=== PATIENT | female | born 1960 | race African-American/Black ===

== ENCOUNTER → 2016-12-26 | Outpatient (CLI) | payer OTHER ==
[2016-06-18 21:37] VITALS: BP 206/121
[~2016-12-26] MED LIST: ATOR40TA PO; GLIP5TAB10 PO; HYDR-2868 PO; INSU100I17 SQ; LISI10TA2 PO; LISI20TA PO; METO50TA2 PO; MORP30TA83 PO; NITR0.4T6 SL; OMEP40CA5 PO; SIMV40TA3 PO; SITA100T PO; TIZA4TAB PO
--- NOTE | 2016-12-26 11:38 | RAD ---
Indication left nipple pain. Grayscale imaging about the left nipple was performed. In addition to images submitted by the technologist a real-time examination was performed by me. Note is made of the mammogram 07/07/2016 and the interpretation of normal. No mass is seen about the left nipple. No abnormality is apparent. IMPRESSION: Normal targeted ultrasound left breast
== END | disposition home or self-care (01) ==
LOC: US 10:55
PROVIDERS: ATTEND Internal Medicine
DX: N64.4 Mastodynia (principal); N61.0 Mastitis without abscess
CPT/HCPCS: 76641

== ENCOUNTER → 2017-01-27 | Day surgery (SDC) | payer OTHER ==
[~2017-01-27] MED LIST changes: +CLON0.2T PO; +GLIP10TA13 PO; +HYDROmorphone 2 MG/ML VIAL IV PRN; +INSU300I SQ; +IV RINGERS,LACTATED 1000ML 1,000 ML IV SCH; +LIDOCAINE 1% 1 ML SYRINGE. ID PRN; +METO100T2 PO; +MORPHINE SULFATE 2 MG/ML DISP.SYRIN. IV PRN; +ONDANSETRON PF 4 MG/2 ML VIAL. IV PRN; +PROCHLORPERAZINE 10 MG/2 ML VIAL. IV PRN; +PROPOFOL 20 ML IV ONE; +PROPOFOL 40 ML IV ONE; +fentaNYL PF VIAL 100 MCG/2 ML VIAL IV PRN
--- NOTE | 2017-01-27 08:20 | PDOC1 ---
HISTORY & PHYSICAL H&P Antoine Manning [id number] 1960 12/24/2016 03:00 PM 08/24 [facility] OUR PATIENTS COME FIRST [address] [place], [place] [id number] Ph. [phone] Patient: Antoine Manning Date of : 1960 Date: 12/24/2016 3:00 PM Visit Type: Consult This 56 year old female presents for H/o colorectal polyp. History of Present Illness: 1. H/o colorectal polyp Prior screening: colonoscopy. Denies risk factors. Pertinent negatives include abdominal pain, change in bowel habits, change in stool caliber, constipation, decreased appetite, diarrhea, melena, nausea, rectal bleeding, vomiting, weight gain and weight loss. Additional information: No family history of colon cancer, No family history of Crohn's/colitis, No NSAID/ASA use and Had colonoscopy in [place] and several polyps removed more then 3 yrs ago. INTAKE COMMENTS: Intake Comments: Nurse Note: the pt is here today for a colonoscopy, the pt states her last one was about 3 years ago and she had multiple polyps. PROBLEM LIST: Problem Description Onset Date Chronic Notes Uncontrolled type 2 diabetes mellitus with diabetic peripheral angiopathy without gangrene, with long-term current use of insulin 12/31/2015 Accelerated essential hypertension 07/02/2015 Controlled diabetes mellitus 05/24/2015 Inguinal lymphadenopathy 11/22/2015 IDDM (insulin dependent diabetes mellitus) 06/03/2016 HTN (hypertension), benign 06/03/2016 Acute low back pain due to spinal disorder 06/03/2016 Type 2 diabetes mellitus with diabetic nephropathy, with long-term current use of insulin 06/03/2016 Type 2 diabetes mellitus with other diabetic kidney complication 04/09/2016 DM w/o complication type II, uncontrolled 09/19/2015 Stuttering 09/19/2015 PAST MEDICAL/SURGICAL HISTORY (Detailed) Disease/disorder Onset Date Management Date Comments back surgery partial hystorectomy umbilical hernia Hernia repair 1980 Hysterectomy 1994 Depression Diabetes Hyperlipidemia Hypertension Medications (Active): Started Medication Directions Instruction Stopped Accu-Chek Active Glucose Cont combo pack 11/27/2016 atorvastatin 40 mg tablet take 1 tablet by oral route every day 11/27/2016 clonidine HCl 0.2 mg tablet TAKE ONE TABLET BY MOUTH TWICE DAILY 01/17/2016 Contour Test Strips check blood sugars TID for diabetes ( E11.9 ) [facility] [id number] 11/27/2016 glipizide 10 mg tablet take 1 tablet by oral route 2 times every day before meals 06/03/2016 Humalog KwikPen 100 unit/mL subcutaneous INJECT 25 UNITS TID FOR DIABETES ( E11.9) 11/28/2016 lisinopril 20 mg tablet take 1 tablet by oral route every day 11/27/2016 metoprolol tartrate 100 mg tablet take 1 tablet by oral route 2 times every day 11/27/2016 morphine 15 mg immediate release tablet take 1 tablet by oral route every 2 hours as needed total 45 mg po bid 12/24/2016 MS Contin 30 mg tablet,extended release take 1 tablet by oral route every 12 hours nitroglycerin 0.[address] 1 tablet (0.4MG) by sublingual route at the 1st sign of attack; may repeat every 5 min until relief; if pain persists after 3 tablets in 15 min, prompt medical attention is recommended 11/27/2016 omeprazole 20 mg capsule,delayed release TAKE ONE CAPSULE BY MOUTH ONCE DAILY BEFORE A MEAL 06/12/2015 PneumRx Verio IQ Meter kit 1 11/27/2016 tizanidine 4 mg tablet TAKE ONE TABLET BY MOUTH THREE TIMES DAILY 06/03/2016 Tolilia SoloStar 300 unit/mL (1.5 mL) subcutaneous insulin pen 25 u at hs Allergies: Ingredient Reaction Medication Name Comment ASPIRIN OXYCODONE REVIEW OF SYSTEMS System Neg/Pos Details Constitutional Negative Chills, fever, malaise, weight gain and weight loss. ENMT Negative Sore throat. Eyes Negative Double vision. Respiratory Negative Dyspnea and wheezing. Cardio Negative Chest pain and irregular heartbeat/palpitations. GI Positive See HPI. GI Negative Abdominal pain, change in bowel habits, change in stool caliber, constipation, decreased appetite, diarrhea, melena, nausea, see HPI, rectal bleeding and vomiting. Negative Dysuria and hematuria. Endocrine Negative Cold intolerance and heat intolerance. Psych Negative Anxiety. Integumentary Negative Hives and rash. MS Negative Joint pain. Tucker/Lymph Negative Easy bleeding and easy bruising. Allergic/Immuno Negative Food allergies. VITAL SIGNS Unable to obtain Height and Weight. Time BP mm/Hg Pulse /min Resp /min Temp F Ht ft Ht in Ht cm Wt lb Wt kg BMI kg/ m2 BSA m2 O2 Sat% 2:54 PM 120/80 76 98.2 97 Time Measured by 2:54 PM Vandana Ramirez PHYSICAL EXAM: Exam Findings Details Constitutional Normal Well developed. Eyes Normal Conjunctiva - Right: Normal, Left: Normal. Sclera - Right: Normal, Left: Normal. Nasopharynx Normal Lips/teeth/gums - Normal. Neck Exam Normal Inspection - Normal. Thyroid gland - Normal. Respiratory Normal Inspection - Normal. Auscultation - Normal. Cardiovascular Normal Regular rate and rhythm. No murmurs, gallops, or rubs. Vascular Normal Pulses - Carotids: Normal, Femoral: Normal, Dorsalis pedis: Normal. Abdomen Normal Inspection - Normal. Anterior palpation - No guarding. No abdominal tenderness. No hepatic enlargement. No splenic enlargement. No hernia. No Ascites. Skin Normal Inspection - Normal. Extremity Normal No edema. Psychiatric Normal Oriented to time, place, person, and situation. Appropriate mood and effect. Assessment/Plan # Detail Type Description 1. Assessment History of colon polyps (Z86.010). Patient Plan schedule colonoscopy. Plan Orders Further diagnostic evaluations ordered today include(s) Colonoscopy to be performed today. She is to schedule a follow-up visit with Terry Goode MD upon completion of work-up Electronically signed by: Terry Goode MD 12/24/2016 04:42 PM Document generated by: Terry Goode 12/24/2016 04:42 PM Vin Ingram MD, [facility]; John Bustos MD Internal Medicine; Wilfred John MD, Internal Medicine; Yessenia Goode MD Internal Medicine; Terry Goode MD, Gastroenterology; Roman Fischer MD, Rheumatology, [address], Physical Medicine/Rehab Fab Alarcon APRN ------ 01/27/17 Patient seen and examined. No change in H&P. TERRY GOODE MD Jan 27, 2017 08:20
--- NOTE | 2017-01-27 09:14 | PDOC4 ---
GI OP Report - Dr. Bolanos Date/Time DATE: 01/27/17 TIME: 09:12 Attending Physician Joaquim Bolanos MD Referring Physician Indications Personal history of colonic polyps Pre-Op See the Anesthesia note for documentation of the administered medications Procedures Colonoscopy Findings - Diverticulosis in the sigmoid colon. - One 5 mm polyp in the ascending colon, removed with a cold snare. Resected and retrieved. - The examination was otherwise normal on direct and retroflexion views. Plan - Discharge patient to home. - Patient has a contact number available for emergencies. The signs and symptoms of potential delayed complications were discussed with the patient. Return to normal activities tomorrow. Written discharge instructions were provided to the patient. - Resume regular diet. - Continue present medications. - Await pathology results. - Repeat colonoscopy in 3 - 5 years for surveillance based on pathology results. - Return to my office in 2 weeks. JOAQUIM BOLANOS MD Jan 27, 2017 09:14
[2017-01-27 09:25] VITALS: BP 153/96
--- NOTE | 2017-01-29 13:31 | PATHOLOGY ---
PATHOLOGY REPORT * * * * * * * * FINAL DIAGNOSIS: Colon biopsy, ascending colon polyp: - Segment of vegetable material identified. COMMENT: There is no polyp identified. REPORT ELECTRONICALLY SIGNED BY: Jesu Tran M.D. DATE/TIME: 01/29/2017 13:30 * * * * * * * * GROSS PATHOLOGY: The specimen is received in formalin labeled "Antoine Manning, ascending colon polyp." Received is a 0.4 cm segment of light barrett vegetative material, consistent with a seed. No soft tissue is grossly identified. The specimen is filtered and submitted entirely in cassette A1. (KAH; 01/28/2017) INITIAL CPT CODE(S): A; 79643 Professional services performed by [facility] [place] [address] Technical services performed by [facility] at [address] [place] [address], [facility] [address], [place] [address]. SPECIMEN(S) RECEIVED: A.Ascending colon polyp CLINICAL HISTORY: History of polyps; polyp PATIENT: ANTOINE MANNING /AGE: 9 1960 (Age: 56) PATIENT #: [id number] ALT CASE #: SPECIMEN COLLECTION DATE: 01/27/2017 SPECIMEN RECEIVED DATE: 01/27/2017 [facility] - [id number] [place] [address] - PHONE: [phone] * * * END OF REPORT * * *
== END | disposition home or self-care (01) ==
LOC: SURG 07:27
PROVIDERS: ATTEND Internal Medicine Gastroenterology
DX: Z09 Encounter for follow-up examination after completed treatment for conditions other than malignant neoplasm (principal); Z86.010 Personal history of colon polyps; D12.2 Benign neoplasm of ascending colon; K57.30 Diverticulosis of large intestine without perforation or abscess without bleeding; M19.90 Unspecified osteoarthritis, unspecified site; E11.9 Type 2 diabetes mellitus without complications; F32.9 Major depressive disorder, single episode, unspecified; Z86.73 Personal history of transient ischemic attack (TIA), and cerebral infarction without residual deficits; Z90.710 Acquired absence of both cervix and uterus
CPT/HCPCS: 45385; J2704